=== PATIENT | male | born 1935 | race Caucasian/White ===

== ENCOUNTER → 2018-12-06 | Outpatient (CLI) | payer MEDICARE, OTHER ==
[~2018-12-06] MED LIST: ASPI-1197 PO; ATOR20TA65 PO; CARV6.25 PO; CLOP75TA32 PO; CYAN250014 PO; FINA5TAB41 PO; GLUC100019 PO; OMEG100014 PO; SACU1TAB7 PO; SPIR25TA6 PO; UBID200C18 PO; [UNRECOGNIZED DRUG - REMARK] PO
== END | disposition home or self-care (01) ==
LOC: OIH 14:26
PROVIDERS: ATTEND Internal Medicine
DX: M47.816 Spondylosis without myelopathy or radiculopathy, lumbar region (principal); M41.86 Other forms of scoliosis, lumbar region; M25.78 Osteophyte, vertebrae
CPT/HCPCS: 72100